=== PATIENT | female | born 1995 | race Caucasian/White ===

== ENCOUNTER 2019-04-12 08:26 | Inpatient (IN) | payer MEDICAID ==
[2019-04-12] MEDS: LACTATED RINGER'S 1,000 ML IV ×3 (10:28→13:46)
[2019-04-12] MEDS ORDERED: LIDOCAINE 1% (MPF) 30 ML INJ INJ (10:30)
[2019-04-12] MEDS ORDERED: OXYTOCIN 30 UNITS/LR 500 ML IV ×2 (10:30→18:30)
[2019-04-12] MEDS ORDERED: AMPICILLIN 2 GM/NS (PMX) 100 ML IV (10:30)
[2019-04-12] MEDS ORDERED: CARBOPROST 250 MCG INJ IM ×2 (10:30→18:30)
[2019-04-12] MEDS ORDERED: BUTORPHANOL 2 MG INJ IV (10:30)
[2019-04-12 10:50] LABS: ADD MAN DIFF? NO
[2019-04-12 10:55] LABS: WHITE BLOOD COUNT 8.8 10^3/ul (4.8-10.8)
[2019-04-12 10:55] LABS: BASOPHILS % 0.3 % (0.0-2.0); EOSINOPHILS % 0.1 % (0.0-7.0); HEMATOCRIT 40.7 % (37.0-47.0); HEMOGLOBIN 13.6 g/dl (12.0-16.0); LYMPHOCYTES # 1.7 10^3/ul (0.8-2.9); LYMPHOCYTES % 18.8 % (15.0-51.0); MEAN CORPUSCULAR HEMOGLOBIN 29.8 pg (29.0-33.0); MEAN CORPUSCULAR HGB CONC 33.4 g/dl (32.0-37.0); MEAN CORPUSCULAR VOLUME 89.1 fl (82.0-101.0); MEAN PLATELET VOLUME 10.3 fl (7.4-10.4); MONOCYTE # 0.5 10^3/ul (0.3-0.9); MONOCYTES % 5.9 % (0.0-11.0); NEUTROPHIL # 6.5 10^3/ul (1.6-7.5); NEUTROPHILS % 74.1 % (39.0-77.0); PLATELET COUNT 247 10^3/UL (140-415); RED BLOOD COUNT 4.57 10^6/ul (4.20-5.40); RED CELL DISTRIBUTION WIDTH 14.6 % (11.5-14.5)
[2019-04-12 11:28] LABS: INR 0.92; PROTIME 12.5 Sec (11.9-14.9)
[2019-04-12 11:29] LABS: PARTIAL THROMBOPLASTIN TIME 29.3 Sec (23.0-35.0)
[2019-04-12] MEDS ORDERED: FENTAnyl 2MCG/ML-ROPIV 0.2% 100 ML (12:24)
[2019-04-12 12:54] LABS: HEPATITIS B SURFACE ANTIGEN NEGATIVE (NEGATIVE)
[2019-04-12] MEDS ORDERED: AMPICILLIN 1 GM/NS (PMX) 50 ML IV (13:00)
[2019-04-12] MEDS ORDERED: FENTAnyl 2MCG/ML-ROPIV 0.2% 100 ML BAG EPI (14:30)
[2019-04-12] MEDS ORDERED: NALOXONE (0.4 MG/ML) INJ IV (14:30)
[2019-04-12 14:57] LABS: RAPID PLASMA REAGIN NONREACTIVE (NR)
[2019-04-12] MEDS: METHYLERGONOVINE 0.2 MG INJ IM (15:56)
[2019-04-12] MEDS: MISOPROSTOL 200 MCG TAB PR (15:56)
[2019-04-12] MEDS: OXYTOCIN 30 UNITS/LR 500 ML IV ×2 (15:56→16:05)
[2019-04-12] MEDS: DEXTROSE 5%-LR 1,000 ML IV (18:07)
[2019-04-12] MEDS ORDERED: METHYLERGONOVINE 0.2 MG INJ IM (18:30)
[2019-04-12] MEDS ORDERED: DIBUCAINE 1% 30 GM OINT TOP (18:30)
[2019-04-12] MEDS ORDERED: ACETAMINOPHEN 325 MG TAB PO (18:30)
[2019-04-12] MEDS ORDERED: MISOPROSTOL 200 MCG TAB PR (18:30)
[2019-04-12] MEDS: IBUPROFEN 600 MG TAB PO ×2 (18:30→23:27)
[2019-04-12] MEDS ORDERED: OXYCODONE/ASPIRIN (4.88/325) TAB PO (18:30)
[2019-04-12] MEDS ORDERED: SENNA/DOCUSATE NA (8.6MG/50MG) TAB PO (18:30)
[2019-04-12] MEDS ORDERED: ONDANSETRON 4 MG INJ IV (18:30)
[2019-04-12] MEDS ORDERED: ZOLPIDEM 5 MG TAB PO (18:30)
[2019-04-12] MEDS ORDERED: LANOLIN HPA 1 PKT TOP (18:30)
[2019-04-12] MEDS ORDERED: DIPHENHYDRAMINE 50 MG INJ IV (18:30)
[2019-04-12] MEDS: LACTATED RINGER'S 1,000 ML IV* (20:19)
[2019-04-12] MEDS: WITCH HAZEL/GLYCERIN PAD PR (23:28)
[2019-04-12] MEDS: BENZOCAINE 20% 56 ML SPRAY TOP (23:28)
[2019-04-13] MEDS: LACTATED RINGER'S 1,000 ML IV* ×2 (03:34→10:07)
[2019-04-13] MEDS: DEXTROSE 5%-LR 1,000 ML IV ×2 (03:34→10:07)
[2019-04-13] MEDS: IBUPROFEN 600 MG TAB PO ×4 (05:53→23:36)
[2019-04-13 06:52] LABS: ADD MAN DIFF? NO
[2019-04-13 06:56] LABS: WHITE BLOOD COUNT 11.3 10^3/ul (4.8-10.8)
[2019-04-13 06:56] LABS: BASOPHILS % 0.3 % (0.0-2.0); EOSINOPHILS % 0.1 % (0.0-7.0); HEMOGLOBIN 11.7 g/dl (12.0-16.0); LYMPHOCYTES # 2.2 10^3/ul (0.8-2.9); LYMPHOCYTES % 19.5 % (15.0-51.0); MEAN CORPUSCULAR HEMOGLOBIN 29.8 pg (29.0-33.0); MEAN CORPUSCULAR HGB CONC 33.4 g/dl (32.0-37.0); MEAN CORPUSCULAR VOLUME 89.3 fl (82.0-101.0); MEAN PLATELET VOLUME 10.2 fl (7.4-10.4); MONOCYTE # 0.9 10^3/ul (0.3-0.9); MONOCYTES % 8.3 % (0.0-11.0); PLATELET COUNT 202 10^3/UL (140-415); RED BLOOD COUNT 3.92 10^6/ul (4.20-5.40); RED CELL DISTRIBUTION WIDTH 14.6 % (11.5-14.5)
[2019-04-14] MEDS: IBUPROFEN 600 MG TAB PO ×2 (05:34→12:38)
[2019-04-14] MEDS: DIPHTH/TET/ACEL PERTUSS (ADULT) 0.5 ML VIAL IM* (09:00)
[2019-04-14] MEDS: MEASLES,MUMPS,RUBELLA VACCINE INJ SC* (09:00)
[2019-04-15 12:46] LABS: RUBELLA ANTIBODY - IGM <20.00 AU/mL
[2019-04-15 22:12] LABS: RUBELLA ANTIBODY - IGG 3.41 index
== END 2019-04-14 15:24 | disposition home or self-care (01) | DRG 807 ==
LOC: OBT 08:26 → L-D 08:27 → OBT 08:42 → L-D 08:42 → PP1 18:00
PROVIDERS: Obstetrics & Gynecology
PROC: 10E0XZZ Delivery of Products of Conception, External Approach (ICD-10-PCS; principal; 2019-04-12)
PROC: 0W8NXZZ Division of Female Perineum, External Approach (ICD-10-PCS; 2019-04-12)
PROC: 0HQ9XZZ Repair Perineum Skin, External Approach (ICD-10-PCS; 2019-04-12)
DX: O48.0 Post-term pregnancy (principal); Z37.0 Single live birth; Z3A.40 40 weeks gestation of pregnancy; O70.0 First degree perineal laceration during delivery
CPT/HCPCS: 62322; 85025; 85610; 85730; 86592; 86762; 86850; 86900; 86901; 87340